=== PATIENT | female | born 1990 | race Asian ===

== ENCOUNTER 2018-06-06 10:56 | Emergency (ER) | payer OTHER ==
[~2018-06-06] VITALS: Ht 162.6 cm; Wt 80.7 kg
[2018-06-06 11:09] VITALS: BP 131/105
--- NOTE | 2018-06-06 11:30 | NUR ---
PT BIB SELF C/O SOB WITH COUGH. PT REPORTS PRODUCTIVE COUGH WITH THICK GREEN SPUTUM AND STATES THAT "PHLEM GETS STUCK IN THROAT MAKING IT DIFFICULT TO BREATH. PT DENIES SOB AT THIS TIME. RR SYMMETRICAL AND NON-LABORED WITH CLEAR BREATH SOUNDS THROUGHOUT. VSS. ER MD TO SEE PT.
[2018-06-06 12:39] VITALS: BP 132/78
--- NOTE | 2018-06-06 12:40 | NUR ---
Patient discharged with v/s stable. Written and verbal after care instructions given and explained. Patient alert, oriented and verbalized understanding of instructions. Ambulatory with steady gait. All questions addressed prior to discharge. ID band removed. Patient advised to follow up with PMD. Rx of CLARITIN-D/ SOMMER SALGADO given. Patient educated on indication of medication including possible reaction and side effects. Opportunity to ask questions provided and answered.
== END 2018-06-06 12:40 | disposition home or self-care (01) ==
LOC: MED 10:56
DX: J40 Bronchitis, not specified as acute or chronic (principal)
CPT/HCPCS: 99283

== ENCOUNTER 2018-10-16 08:17 | Outpatient (CLI) | payer OTHER | END 2018-10-16 20:43 | disposition home or self-care (01) | LOC: MLB 08:17 | PROVIDERS: ATTEND Obstetrics & Gynecology | DX: E28.2 Polycystic ovarian syndrome (principal); E22.1 Hyperprolactinemia | CPT/HCPCS: 36415; 84144; 84146 ==

== ENCOUNTER 2018-11-23 08:15 | Outpatient (CLI) | payer OTHER | END 2018-11-23 20:13 | disposition home or self-care (01) | LOC: MLB 08:15 | PROVIDERS: ATTEND Obstetrics & Gynecology | DX: E22.1 Hyperprolactinemia (principal) | CPT/HCPCS: 36415; 84146 ==

== ENCOUNTER 2019-01-13 10:54 | Outpatient (CLI) | payer OTHER | END 2019-01-13 22:29 | disposition home or self-care (01) | LOC: MLB 10:54 | PROVIDERS: ATTEND Obstetrics & Gynecology | DX: Z34.91 Encounter for supervision of normal pregnancy, unspecified, first trimester (principal) | CPT/HCPCS: 36415; 84702 ==

== ENCOUNTER 2019-01-20 11:58 | Outpatient (CLI) | payer OTHER | END 2019-01-20 20:58 | disposition home or self-care (01) | LOC: MLB 11:58 | PROVIDERS: ATTEND Obstetrics & Gynecology | DX: O20.0 Threatened abortion (principal); Z3A.00 Weeks of gestation of pregnancy not specified | CPT/HCPCS: 36415; 84702 ==

== ENCOUNTER 2019-01-26 10:28 | Outpatient (CLI) | payer OTHER | END 2019-01-26 20:42 | disposition home or self-care (01) | LOC: MLB 10:28 | PROVIDERS: ATTEND Obstetrics & Gynecology | DX: O20.0 Threatened abortion (principal); Z3A.00 Weeks of gestation of pregnancy not specified | CPT/HCPCS: 36415; 84702 ==

== ENCOUNTER 2019-02-27 15:27 | Outpatient (CLI) | payer OTHER | END 2019-02-27 20:09 | disposition home or self-care (01) | LOC: MLB 15:27 | PROVIDERS: ATTEND Obstetrics & Gynecology | DX: O03.9 Complete or unspecified spontaneous abortion without complication (principal) | CPT/HCPCS: 36415; 84702 ==

== ENCOUNTER 2019-11-21 10:42 | Outpatient (CLI) | payer OTHER | END 2019-11-21 20:40 | disposition home or self-care (01) | LOC: MLB 10:42 | PROVIDERS: ATTEND Obstetrics & Gynecology | DX: E22.1 Hyperprolactinemia (principal) | CPT/HCPCS: 36415; 84146 ==

== ENCOUNTER 2020-01-17 17:18 | Outpatient (CLI) | payer OTHER | END 2020-01-17 20:32 | disposition home or self-care (01) | LOC: MLB 17:18 | PROVIDERS: ATTEND Obstetrics & Gynecology | DX: E22.1 Hyperprolactinemia (principal) | CPT/HCPCS: 36415; 84146 ==

== ENCOUNTER 2020-07-07 16:28 | Outpatient (CLI) | payer OTHER ==
[2020-07-08 09:06] LABS: ESTRADIOL SERUM 25.4 pg/mL (.); FOLLICLE STIMULATING HORMONE 5.3 mIU/mL (.); LUTEINIZING HORMONE 3.5 mIU/mL (.)
== END 2020-07-07 22:16 | disposition home or self-care (01) ==
LOC: MLB 16:28
DX: N92.6 Irregular menstruation, unspecified (principal)
CPT/HCPCS: 36415; 82670; 83001; 83002; 83516

== ENCOUNTER 2020-07-12 11:32 | Outpatient (CLI) | payer OTHER ==
[2020-07-13 08:07] LABS: ESTRADIOL SERUM 26.4 pg/mL (.); FOLLICLE STIMULATING HORMONE 5.8 mIU/mL (.)
[2020-07-13 14:52] LABS: PROLACTIN 30.4 ng/mL (4.8-23.3)
== END 2020-07-12 20:05 | disposition home or self-care (01) ==
LOC: MLB 11:32
DX: E28.2 Polycystic ovarian syndrome (principal); N92.6 Irregular menstruation, unspecified; E22.1 Hyperprolactinemia
CPT/HCPCS: 36415; 82670; 83001; 83036; 83525; 84146; 84443